=== PATIENT | female | born 1980 | race Caucasian/White ===

== ENCOUNTER 2017-05-09 23:55 | Emergency (ER) | payer BC ==
[~2017-05-09] VITALS: Ht 160 cm; Wt 104.4 kg
[2017-05-10] MEDS ORDERED: ZOFRAN ODT8 MG PO (03:36)
[2017-05-10 03:44] VITALS: BP 117/79
== END 2017-05-10 03:45 | disposition home or self-care (01) ==
LOC: EME 23:55
DX: R51 Headache (principal); R11.2 Nausea with vomiting, unspecified; F17.200 Nicotine dependence, unspecified, uncomplicated
CPT/HCPCS: 70450; 99281; 99285; J0780; J1100; J1200; J1885; J3475; J7030

== ENCOUNTER 2017-07-08 10:08 | Emergency (ER) | payer BC ==
[~2017-07-08] VITALS: Ht 160 cm; Wt 102.5 kg
[~2017-07-08 10:08] MED LIST: ZOFRAN ODT8 MG PO
[2017-07-08 10:56] LABS: HEMATOCRIT 39.4 % (36.0-46.0); HEMOGLOBIN 12.9 G/DL (11.9-15.5); MCH 27.9 PG (29.0-34.0); MCHC 32.7 G/DL (30.0-36.0); MCV 85.3 FL (83-99); PLATELET COUNT 287 K/uL (156-360); RBC DIS.WIDTH-CV 13.7 % (11.8-14.6); RBC DIS.WIDTH-SD 42.5 % (39-53); RED BLOOD COUNT 4.62 M/uL (3.80-5.20); WHITE BLOOD COUNT 8.8 K/uL (4.1-10.2)
[2017-07-08 11:28] LABS: CHLORIDE 100 MEQ/L (99-109); CREATININE 0.9 MG/DL (0.6-1.3); GFR ESTIMATE (CALCULATED) > 59 mL/min/; GLUCOSE 119 mg/dL (70-99); POTASSIUM 3.9 MEQ/L (3.7-5.4); SODIUM 137 MEQ/L (136-147); UREA NITROGEN (BUN) 13 mg/dL (9-23)
[2017-07-08 11:38] LABS: LIPASE 19 U/L (1.0-51.0)
[2017-07-08 11:58] LABS: QUANTITATIVE HCG < 4.0 MIU/ML
[2017-07-08 12:53] LABS: ALBUMIN 4.1 G/DL (3.2-4.8); DIRECT BILIRUBIN 0.1 mg/dL (0.0-0.3); TOTAL BILIRUBIN 0.3 MG/DL (0.0-1.0)
[2017-07-08 12:59] LABS: ALKALINE PHOSPHATASE 91 IU/L (3-129); ALT (GPT) 50 IU/L (3-49); AST (GOT) 45 IU/L (2-34); TOTAL PROTEIN 7.5 G/DL (6.4-8.3)
[2017-07-08 14:00] LABS: APPEARANCE SL.HAZY ((CLEAR)); BILIRUBIN NEGATIVE; BLOOD NEGATIVE; COLOR AMBER ((YELLOW)); GLUCOSE (STRIP) NEGATIVE; KETONES 20; LEUKOCYTES NEGATIVE; NITRITE NEGATIVE; PROTEIN (STRIP) 30; SPECIFIC GRAVITY 1.033 (1.000-1.030); UROBILINOGEN 0.2 MG/DL (0.2-1.0)
[2017-07-08 14:09] LABS: BACTERIA RARE /HPF; EPITHELIAL CELLS 2+ /HPF; MUCUS 1+ /LPF; UCUL ADDED? NO; WHITE BLOOD CELLS 0-5 /HPF (0-5)
[2017-07-08] MEDS ORDERED: REGLAN5 MG PO (14:18)
[2017-07-08] MEDS ORDERED: PHENERGAN25 MG PR (14:18)
[2017-07-08 14:32] VITALS: BP 134/83
== END 2017-07-08 14:33 | disposition home or self-care (01) ==
LOC: EME 10:08
DX: K52.9 Noninfective gastroenteritis and colitis, unspecified (principal); E86.0 Dehydration; Z90.49 Acquired absence of other specified parts of digestive tract
CPT/HCPCS: 74022; 80048; 80076; 81003; 83690; 84702; 85027; 99281; 99285; J1885; J2405; J2765; J7030